=== PATIENT | male | born 1970 | race Two or more races ===

== ENCOUNTER 2024-10-03 17:32 | Emergency (ER) | payer MEDICAID ==
[~2024-10-03] VITALS: Ht 172.7 cm; Wt 103.9 kg
[2024-10-03] MEDS ORDERED: predniSONE 20 MG TABLET ONE (18:46)
[2024-10-03] MEDS: predniSONE 20 MG TABLET PO ONE (18:48)
[2024-10-03] MEDS: ALBUTEROL FS 2.5 MG/3 ML VIAL.NEB NEB ONE (18:48)
[2024-10-03] MEDS: IPRATROPIUM NEB FS 0.5 MG/2.5 ML AMPUL.NEB NEB ONE (18:48)
[2024-10-03] MEDS ORDERED: IPRATROPIUM NEB FS 0.5 MG/2.5 ML AMPUL.NEB ONE (18:51)
[2024-10-03] MEDS ORDERED: ALBUTEROL FS 2.5 MG/3 ML VIAL.NEB ONE (18:51)
[2024-10-03 18:53] VITALS: O2SAT 99
[2024-10-03 19:53] VITALS: O2SAT 98
[2024-10-03 19:58] VITALS: O2SAT 95
[2024-10-03] MEDS: ALBUTEROL FS 2.5 MG/0.5 ML VIAL.NEB NEB ONE (20:06)
[2024-10-03] MEDS ORDERED: ALBUTEROL FS 2.5 MG/0.5 ML VIAL.NEB ONE (20:07)
[2024-10-03] MEDS ORDERED: PRED20TA GT (20:12)
[2024-10-03 20:13] VITALS: O2SAT 97
[2024-10-03 20:27] VITALS: BP 161/90; TEMP 98.5; O2SAT 96
== END 2024-10-03 20:32 | disposition home or self-care (01) ==
LOC: ER 17:37
DX: J45.901 Unspecified asthma with (acute) exacerbation (principal); Z88.6 Allergy status to analgesic agent; Z91.030 Bee allergy status
CPT/HCPCS: 99285; 94644; J7512